=== PATIENT | female | born 1940 | race Caucasian/White ===

== ENCOUNTER → 2020-08-01 | Outpatient (CLI) | payer MEDICARE | LOC: HEART 5 08:00 | DX: R06.00 Dyspnea, unspecified (principal); I11.9 Hypertensive heart disease without heart failure; I08.1 Rheumatic disorders of both mitral and tricuspid valves | CPT/HCPCS: 78452; 93306; A9502; J2785 ==

== ENCOUNTER → 2020-08-24 | Outpatient (CLI) | payer MEDICARE | LOC: HEART 5 14:20 | DX: R06.00 Dyspnea, unspecified (principal) ==

== ENCOUNTER → 2020-09-26 | Outpatient (CLI) | payer MEDICARE | LOC: HEART 5 10:13 | DX: R06.02 Shortness of breath (principal) | CPT/HCPCS: 71046; 94010 ==